=== PATIENT | female | born 1970 | race Caucasian/White ===

== ENCOUNTER → 2016-07-05 10:52 | Outpatient (CLI) | payer MEDICAID ==
[2015-01-09 07:42] VITALS: BMI 19.5
[~2016-07-05 10:52] MED LIST: DICLOFENAC SODI50 MG PO; HYDROCODONE-APA1 TAB PO; KLONOPIN0.5 MG PO; PROTONIX40 MG PO; SOMA350 MG PO
== END | disposition home or self-care (01) ==
LOC: D.MRI 10:52
DX: M75.41 Impingement syndrome of right shoulder (principal)

== ENCOUNTER 2016-10-25 18:04 | Emergency (ER) | payer MEDICAID ==
[2015-01-09 07:42] VITALS: BMI 19.5
== END 2016-10-25 21:10 | disposition home or self-care (01) ==
LOC: D.ER 18:04
DX: G89.18 Other acute postprocedural pain (principal); F17.200 Nicotine dependence, unspecified, uncomplicated

== ENCOUNTER → 2017-04-06 09:26 | Outpatient (CLI) | payer MEDICAID ==
[2015-01-09 07:42] VITALS: BMI 19.5
== END | disposition home or self-care (01) ==
LOC: D.MRI 09:26
DX: M75.41 Impingement syndrome of right shoulder (principal)

== ENCOUNTER 2017-06-09 06:50 | Day surgery (SDC) | payer MEDICAID ==
[2017-06-08 15:00] LABS: HEMATOCRIT 42.7 % (36.0-48.0); HEMOGLOBIN 14.1 g/dL (12-16); MCH 31.2 pg (26.0-34.0); MCV 94.5 fL (80.0-100.0); MEAN PLATELET VOLUME 10.2 fL (7.4-10.4); RBC 4.52 10x6/uL (4.00-5.40); RDW 13.7 % (11.5-14.5); WBC 9.7 10x3/uL (4.8-10.8)
[~2017-06-09] VITALS: Ht 152.4 cm; Wt 44.0 kg
--- NOTE | ~2017-06-09 | OP ---
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 PROCEDURE: 1. Arthroscopic distal clavicle excision under separate incision -- 1 cm arthroscopically. 2. Arthroscopic subacromial decompression, acromioplasty and bursectomy. SURGEON: Terrance Salguero MD ANESTHESIA: General. INTRAOPERATIVE COMPLICATIONS: None. SUMMARY OF PATHOLOGIC FINDINGS: The patient indeed has downward sloping acromion with recurrence from prior distal clavicle excision. She had recurrence of distal clavicular osteophytes more like pillion bone spurs. OPERATIVE SUMMARY IN DETAIL: After obtaining the appropriate preoperative orthopedic surgery consent as well as anesthetic consultation, evaluation and clearance, the patient was brought to the operating room and placed on operating table in supine position. After general laryngeal mask was administered, the patient was placed in left lateral decubitus position. All pressure points were padded to include down leg peroneal pad as well as axillary roll. The patient was held firmly to the operating table using the vacuum pack suction system. Right upper extremity and shoulder were then prepped and draped in routine sterile fashion. The arm was held in the Arthrex traction boom at 30 degrees of forward flexion, 30 degrees of abduction, 10 pounds of traction laterally. Arthroscopy was established in the glenohumeral joint from posterior portal. Anterior portal was established in the anterior safe interval. Diagnostic arthroscopy revealed the above findings. The glenohumeral portion of the examination was essentially pristine, no labral tearing was noted. No arthritis was noted. Attention was then turned to the subacromial space. While in the subacromial space, Roebling tissue ablation system was utilized to denude the undersurface of the acromion of all soft tissue elements and released coracoacromial ligament. Further denuding was carried out over the AC joint where the regrowth was noted. A 5.0 barrel bur was used to perform acromioplasty to the acromioclavicular joint. Then through a separate anterior portal under direct arthroscopic visualization, distal clavicle inferior osteophytes were taken down and distal clavicle was resected back. Again, the entire AC section was resected. Having completed this, arthroscopy portals were closed in routine interrupted fashion using 4-0 Prolene. Sterile dressings were applied. The patient was awakened and taken to the recovery room in stable condition. All final needle and sponge counts were correct. TRANSINT:[id number] Voice Confirmation ID: [id number] DOCUMENT ID: [id number] OPERATIVE REPORT [id number] SILAS CABAN MD, TERRANCE ELISE at 1612 CC: [id number] DICTATION DATE: 06/09/17 1031 [employer]PER[employer] ESSBASE DEVELOPER: 06/09/17 1145 [facility] 06/09/17 [id number] [place] [address]
[~2017-06-09 06:50] MED LIST changes: +ACTIVELLA 1 MG-1 TAB PO; +AMBIEN10 MG PO; +DUEXIS 800-26.1 EACH PO; +ELAVIL25 MG PO; +PERCOCET 7.5/321 TAB PO; +PROZAC40 MG PO; +ZANAFLEX4 MG PO
[2017-06-09 07:38] VITALS: BP 107/78; Ht 152.4 cm; Wt 44.0 kg
[2017-06-09] MEDS ORDERED: PERCOCET 10/3251 TA1 PO (10:28)
== END 2017-06-09 12:15 | disposition home or self-care (01) ==
LOC: D.OPS 06:50 → D.PAN 09:00 → D.OPS 09:00
PROVIDERS: Anesthesiology
DX: M75.41 Impingement syndrome of right shoulder (principal); M19.011 Primary osteoarthritis, right shoulder; F17.200 Nicotine dependence, unspecified, uncomplicated; Z01.812 Encounter for preprocedural laboratory examination